=== PATIENT | female | born 1975 | race Caucasian/White ===

== ENCOUNTER 2019-04-11 18:15 | Emergency (ER) | payer SELFPAY ==
[~2019-04-11] VITALS: Ht 152.4 cm; Wt 80.7 kg
[2019-04-11 18:16] VITALS: BP 165/81
--- NOTE | 2019-04-11 18:24 | NUR ---
PT AMB TO BED 11.
[2019-04-11] MEDS ORDERED: ONDANSETRON 4 MG/2 ML VIAL IVP ONE (18:45)
[2019-04-11] MEDS ORDERED: KETOROLAC 30 MG/ML VIAL IVP ONE (18:45)
[2019-04-11] MEDS ORDERED: NACL 0.9% 1,000 ML IV ONE (18:45)
--- NOTE | 2019-04-11 18:46 | NUR ---
PATIENT PRESENTS TO ED C/O RUQ PAIN X 1 DAY. PT STATES THAT THIS PAIN HAS BEEN PRESENT FOR 2 MONTHS, WHICH COMES AND GOES. PAIN INCREASED IN INTENSITY TODAY, 9/10, SQUEEZING PAIN. NO MEDS TAKEN. PT CONSULTED MD FOR SAME REASON 20 DAYS PRIOR. PER PT, ANIYAH RESULTS SHOWED INFLAMED GALLBLADDER. +NAUSEA, -VOMITING. NO URINARY SYMPTOMS. LBM: TODAY. PT DENIES ANY FEVER, CP, SOB, OR COUGH AT THIS TIME; ABDOMEN CARD TENDER ON RUQ. BOWEL SOUNDS HYPOACTIVE ON ALL QUADRANTS. VSS; PATIENT POSITIONED FOR COMFORT; HOB ELEVATED; BEDRAILS UP X2; BED DOWN. DR. ONEAL AT BEDSIDE.
[2019-04-11 19:10] LABS: BASOPHILS # (AUTO) 0.1 K/uL (0.00-0.22); BASOPHILS % (AUTO) 1.1 % (0.0-2.0); EOSINOPHILS # (AUTO) 0.3 K/uL (0-0.4); EOSINOPHILS % (AUTO) 3.1 % (0.0-4.0); HEMOGLOBIN 13.4 g/dL (12.0-16.0); LYMPHOCYTES # (AUTO) 3.2 K/uL (2.5-16.5); LYMPHOCYTES % (AUTO) 35.2 % (20.5-51.1); MEAN CORPUSCULAR HEMOGLOBIN 31 pg (27-31); MEAN CORPUSCULAR HGB CONC 34 g/dL (33-37); MEAN CORPUSCULAR VOLUME 93.3 fL (80-94); MONOCYTES # (AUTO) 0.5 K/uL (0.8-1.0); MONOCYTES % (AUTO) 5.1 % (1.7-9.3); NEUTROPHILS # (AUTO) 5.1 K/uL (1.8-7.7); NEUTROPHILS % (AUTO) 55.5 % (42.2-75.2); PLATELET COUNT (AUTO) 265 K/uL (140-450); RED BLOOD CELL COUNT(AUTO) 4.29 MIL/uL (4.20-5.40); RED CELL DISTRIBUTION WIDTH 13.8 % (11.6-13.7); WHITE BLOOD COUNT (AUTO) 9.2 K/uL (4.8-10.8)
[2019-04-11] MEDS ORDERED: MORPHINE SULFATE 4 MG/ML SYR IVP ONE (19:10)
--- NOTE | 2019-04-11 19:23 | NUR ---
Pt report given to ALEXUS REYNOSO. Transfer of care at this time.
--- NOTE | 2019-04-11 19:25 | NUR ---
RECEIVED REPORT FROM MADELYN VAUGHAN, TRANSFER OF CARE AT THIS TIME. PATIENT IS ALERT AND ORIENTED, BREATHING EVEN AND UNLABORED. PATIENT STATES 0/10 PAIN.
[2019-04-11 19:27] LABS: CARBON DIOXIDE 27.7 mmol/L (21-32); CREATININE 0.8 mg/dL (0.6-1.3); POTASSIUM 3.7 mmol/L (3.5-5.1)
[2019-04-11 19:33] LABS: ALBUMIN 3.7 g/dL (3.4-5.0); TOTAL BILIRUBIN 0.4 mg/dL (0.0-1.0)
[2019-04-11 20:35] VITALS: BP 165/81
--- NOTE | 2019-04-11 20:35 | NUR ---
Patient discharged with v/s stable. Written and verbal after care instructions ABOUT ABDOMINAL PAIN AND CHOLELITHIASIS given and explained. Patient alert, oriented and verbalized understanding of instructions. Ambulatory with steady gait. All questions addressed prior to discharge. ID band removed. Patient advised to follow up with PMD. Rx of MOTRIN, ZOFRAN, AND NORCO given. Patient educated on indication of medication including possible reaction and side effects. Opportunity to ask questions provided and answered.
--- NOTE | 2019-04-17 13:53 | NUR ---
Late entry. Confirmed with RN that 1000ml 0.9 NS IV completed at 1950
== END 2019-04-11 20:35 | disposition home or self-care (01) ==
LOC: MED 18:15
DX: R10.11 Right upper quadrant pain (principal); Z98.890 Other specified postprocedural states
CPT/HCPCS: 36415; 80053; 81002; 81025; 83690; 85025; 96374; 96375; 99283; J1885; J2270; J2405; J7030

== ENCOUNTER 2019-09-04 16:33 | Inpatient (IN) | payer MEDICAID ==
[~2019-09-04] VITALS: Ht 154.9 cm; Wt 79.8 kg
[2019-09-04 16:44] VITALS: BP 157/80
--- NOTE | 2019-09-04 16:47 | NUR ---
Patient ambulated to bed 6. RN evaluating patient at bedside.
--- NOTE | 2019-09-04 16:57 | NUR ---
AMB TO RESTROOM
--- NOTE | 2019-09-04 16:59 | NUR ---
43 Y/F PRESENTS TO ED FOR RUQ ABD PAIN X 2 WEEKS. PT REPORTS PAIN IS ON AND OFF, 10/10 PAIN, NONRADIATING. PT DENIES N/V/D, FEVER, CONSTIPATION. PT DENIES DYSURIA, HEMATURIA. ABD SOFT, BS ACTIVE X 4. RUQ TENDER UPON PALPATION. NKDA PMH- DENIES RX- DENIES
--- NOTE | 2019-09-04 17:16 | NUR ---
DR. GUAN AT BEDSIDE EVALUATING PT.
[2019-09-04] MEDS ORDERED: KETOROLAC 30 MG/ML VIAL IVP ONE (17:20)
[2019-09-04 17:29] LABS: BASOPHILS % (AUTO) 0.4 % (0.0-2.0); EOSINOPHILS # (AUTO) 0.1 K/uL (0-0.4); EOSINOPHILS % (AUTO) 1.3 % (0.0-4.0); HEMATOCRIT 44.1 % (36-48); HEMOGLOBIN 14.6 g/dL (12.0-16.0); LYMPHOCYTES # (AUTO) 2.6 K/uL (2.5-16.5); LYMPHOCYTES % (AUTO) 23.5 % (20.5-51.1); MEAN CORPUSCULAR HEMOGLOBIN 31 pg (27-31); MEAN CORPUSCULAR HGB CONC 33 g/dL (33-37); MEAN CORPUSCULAR VOLUME 91.8 fL (80-94); MONOCYTES # (AUTO) 0.7 K/uL (0.8-1.0); MONOCYTES % (AUTO) 6.3 % (1.7-9.3); NEUTROPHILS # (AUTO) 7.7 K/uL (1.8-7.7); NEUTROPHILS % (AUTO) 68.5 % (42.2-75.2); PLATELET COUNT (AUTO) 326 K/uL (140-450); RED CELL DISTRIBUTION WIDTH 14.4 % (11.6-13.7); WHITE BLOOD COUNT (AUTO) 11.2 K/uL (4.8-10.8)
--- NOTE | 2019-09-04 17:40 | NUR ---
ULTRASOUND AT BEDSIDE.
[2019-09-04 17:46] LABS: ALBUMIN 3.8 g/dL (3.4-5.0); ANION GAP 14.2 (8-16); CARBON DIOXIDE 27.9 mmol/L (21-32); CREATININE 0.7 mg/dL (0.6-1.3); POTASSIUM 4.1 mmol/L (3.5-5.1); TOTAL BILIRUBIN 0.9 mg/dL (0.0-1.0)
--- NOTE | 2019-09-04 18:00 | NUR ---
VSS. ALL NEEDS MET AT THIS TIME WILL CONTINUE TO MONTIOR
--- NOTE | 2019-09-04 18:00 | NUR ---
NADR. DECREASED PAIN TO 8/10.
[2019-09-04] MEDS ORDERED: DOCUSATE SODIUM 100 MG GELCAP PO PRN (18:55)
[2019-09-04] MEDS ORDERED: MORPHINE SULFATE 2 MG/ML SYR IVP PRN (18:55)
[2019-09-04] MEDS ORDERED: ACETAMINOPHEN 325 MG TAB PO PRN (18:55)
[2019-09-04] MEDS ORDERED: ONDANSETRON 4 MG/2 ML VIAL IM/IVP PRN (18:55)
[2019-09-04] MEDS ORDERED: KETOROLAC 15 MG/ML VIAL IVP PRN (18:55)
--- NOTE | 2019-09-04 18:55 | NUR ---
Patient appears to be resting in bed. Vital Signs within normal limits. Respirations even and unlabored.
--- NOTE | 2019-09-04 19:15 | NUR ---
RECIEVED REPORT FROM LEX VAUGHAN FOR CONTINUITY OF CARE. PT RESTING IN BED COMFORTABLY
[2019-09-04 19:40] LABS: PROTHROMBIN TIME 9.6 secs (10.8-13.4)
--- NOTE | 2019-09-04 19:50 | NUR ---
Patient will be admitted to care of DR. HIGH. Admited to Med/Surg. Will go to room 106A. Belongings list completed. Report to ALEXUS SERNA.
[2019-09-04 19:53] LABS: MAGNESIUM 2.1 mg/dL (1.8-2.4); PHOSPHORUS 3.2 mg/dL (2.5-4.9); THYROID STIMULATING HORMONE 1.56 uIU/mL (0.34-3.74)
[2019-09-04 20:00] VITALS: BP 142/80
--- NOTE | 2019-09-04 20:00 | NUR ---
PT BROUGHT UP TO FLOOR BY TYLER TO BED 106, SHE AMBULATED TO BED A INDEPENDENTLY.PT AOX4 SKIN INTACT WITH 20G IV SITE ON RAC. PT V/S FOLLOWS: T 98.2 P 70 R 18 B/P 142/80 02 98% ON ROOM AIR. PT WAS GIVEN PAIN MEDICATION IN ER AND DENIES PAIN IN ABDOMEN AT THIS TIME.
--- NOTE | 2019-09-04 20:45 | NUR ---
MD JAIN AT BEDSIDE EVALUATING PT. PT IN STABLE CONDITION.
[2019-09-04 21:08] LABS: BARBITURATE, URINE NEGATIVE ng/ml (NEG <=200); BENZODIAZEPINE, URINE NEGATIVE ng/mL (NEG <=200); CANNABINOID, URINE NEGATIVE ng/mL (NEG <=50); COCAINE, URINE NEGATIVE ng/mL (NEG <=300); OPIATE, URINE NEGATIVE ng/mL (NEG <=2000); PHENCYCLIDINE SCREEN,URINE NEGATIVE ng/mL (NEG <=25)
--- NOTE | 2019-09-04 21:30 | NUR ---
PT IN BED NO C/O VOICED. MRSA SWAB DONE IN BOTH NARES, RESIDENT MD CHANCE ORDERED D5N/S AT 80 HUNG AND RUNNING ORDERED. ADMISSION QUESTIONS ASKED VIA [employer]. POLISH COMPOUNDER JOSSELYN . VIA SAME POLISH COMPOUNDER, PT AGREED TO GALLBLADDER SURGERY IN THE AM. AL QUESTIONS ANSWERED REGARDING SURGERY AND ADMISSION. PT CONTINUES TO DENY PAIN. PT ORIENTED TO ROOM , SURROUNDINGS AND ROOMMATE. ALL UNIVERSAL FALLS PRECAUTIONS IN PLACE.
--- NOTE | 2019-09-04 22:00 | NUR ---
CONSENT SIGNED AND PLACED IN CHART
[2019-09-04] MEDS: DEXT 5% /NACL 0.9% 1,000 ML IV SCH (23:41)
--- NOTE | 2019-09-05 | NUR ---
PT IN BED RESTING WITH EYES CLOSED, V/S FOLLOWS: T 98.1 P 72 R 18 B/P 94/46 02 100% ON ROOM AIR. IV FLUIDS RUNNING ORDERED, UNIVERSAL FALLS PRECAUTIONS IN PLACE.
--- NOTE | 2019-09-05 04:00 | NUR ---
PT IN BED IV SITE FLUSHED, ASYMPTOMATIC AND INTACT. PT DENIES ANY PAIN AT TIME. ALL UNIVERSAL FALLS PRECAUTIONS IN PLACE.
--- NOTE | 2019-09-05 06:00 | NUR ---
PT IN BED RESTING WITH EYES CLOSED NO C/O VOICED, IV FLUIDS RUNNING ORDERED, ALL UNIVERSAL FALLS PRECAUTIONS IN PLACE.
[2019-09-05] MEDS: DEXT 5% /NACL 0.9% 1,000 ML IV SCH ×2 (07:24→19:54)
[2019-09-05 07:39] LABS: BASOPHILS % (AUTO) 0.3 % (0.0-2.0); EOSINOPHILS # (AUTO) 0.2 K/uL (0-0.4); EOSINOPHILS % (AUTO) 2.5 % (0.0-4.0); HEMATOCRIT 39.7 % (36-48); HEMOGLOBIN 13.1 g/dL (12.0-16.0); LYMPHOCYTES # (AUTO) 1.9 K/uL (2.5-16.5); LYMPHOCYTES % (AUTO) 24.8 % (20.5-51.1); MEAN CORPUSCULAR HEMOGLOBIN 31 pg (27-31); MEAN CORPUSCULAR HGB CONC 33 g/dL (33-37); MEAN CORPUSCULAR VOLUME 92.8 fL (80-94); MONOCYTES # (AUTO) 0.5 K/uL (0.8-1.0); NEUTROPHILS # (AUTO) 5.2 K/uL (1.8-7.7); NEUTROPHILS % (AUTO) 66.4 % (42.2-75.2); PLATELET COUNT (AUTO) 287 K/uL (140-450); RED BLOOD CELL COUNT(AUTO) 4.28 MIL/uL (4.20-5.40); RED CELL DISTRIBUTION WIDTH 14.4 % (11.6-13.7); WHITE BLOOD COUNT (AUTO) 7.8 K/uL (4.8-10.8)
[2019-09-05 07:54] LABS: ANION GAP 16.7 (8-16); CARBON DIOXIDE 21.8 mmol/L (21-32); CREATININE 0.7 mg/dL (0.6-1.3); POTASSIUM 3.5 mmol/L (3.5-5.1)
[2019-09-05 08:00] VITALS: BP 139/76
--- NOTE | 2019-09-05 08:02 | NUR ---
RECEIVED REPORT FROM HELIX COIL WINDER. PT IN STABLE CONDITION, NO DISTRESS NOTED, RESPIRATIONS EVEN AND UNLABORED ON ROOM AIR. SKIN INTACT. IV IN PLACE PATENT AND ASYMPTOMATIC INFUSING PER ORDER. SAFETY MEASURES IN PLACE. CALL LIGHT WITHIN REACH, WILL CONTINUE TO MONITOR.
--- NOTE | 2019-09-05 08:58 | NUR ---
PATIENT HAS BEEN SCREENED AND CATEGORIZED LOW NUTRITION RISK. PATIENT WILL BE SEEN WITHIN 7 DAYS OF ADMISSION. 09/11/[address]
--- NOTE | 2019-09-05 11:45 | NUR ---
Missile Technician Note: Basic Screen: Yes High Risk DC Screen [place]: EMMANUEL JACOBO Home Relationship: SIGNIFICANT OTHER Pre-Admission Living Arrangements: Lives with Other Prior ADL Independent Current Home Health Name/Tel: N/A Current DME/02 Name/Tel: N/A Current Hospice Name/Tel: N/A Current Dialysis Name/Tel: N/A Healthcare Decision Maker: Patient Advance Directive No Physician Orders for Life Sustaining Treatment Form No Patient/Family Have Educational Needs No Discipline: Case Mgt/Social Svcs Tentative Discharge Plan/Destination: No Needs Identified Will require assistance post discharge: No Referred to Work Checker: No Tentative Discharge Plan Summary: Patient is a 43-year-old female admitted for impacted gallbladder neck. Patient has no pertinent PMHX. Patient was admitted from home where she lives with significant other and children. SW contacted Emmanuel Jacobo [phone] to verify demographics. Per Emmanuel, patient is independent with all ADLs and has no history of mental health or substance abuse. Tentative discharge plan is for patient to return home. No further needs identified. Signature: RASHEEDA Lu Date: Sep 05, 2019 Time: 11:44
--- NOTE | 2019-09-05 12:07 | NUR ---
to CT scan via w/c
[2019-09-05] MEDS ORDERED: cefTRIAXone 1,000 MG VIAL ONE (12:26)
--- NOTE | 2019-09-05 12:39 | NUR ---
SCHEDULED IV ABX ADMINISTERED. PT RESTING IN BED, NO SIGNS OF DISTRESS, ALL NEEDS MET AT THIS TIME.
--- NOTE | 2019-09-05 15:06 | NUR ---
DISCHARGE PLANNING: THIS IS A 43 Y/O FEMALE PATIENT FROM HOME, WHO CAME IN DUE TO ABDOMINAL PAIN X1 DAY. DENIES PAST MEDICAL HISTORY. SURGICAL HISTORY INCLUDE BILATERAL TUBAL LIGATION. INITIAL DIAGNOSIS OF IMPACTED GALLBLADDER NECK STONE. GALLBLADDER US SHOWED CHOLELITHIASIS WITHOUT EVIDENCE OF CHOLECYSTITIS. ABD/PELVIS CT SHOWED CHOLELITHIASIS AND CHOLECYSTITIS. SURGICAL CONSULT WITH DR. WALTERS IN PLACE. LABS WNL, LIPASE/ AMYLASE WNL. ON ROCEPHIN IV. SCHEDULED FOR LAP POSSIBLE OPEN CHOLECYSTECTOMY WITH DR. WALTERS TODAY. DC PLAN BACK TO HOME ONCE STABLE. Addendum: 09/06/19 at 1351 by Radha Blevins CM S/P LAP WES 09/05/[address] WALTERS. FOR DC TODAY.
--- NOTE | 2019-09-05 15:27 | NUR ---
PT TAKEN BY OR NURSES FOR LAP CHOLECYSTECTOMY.
[2019-09-05] MEDS ORDERED: MIDAZOLAM 2 MG/2 ML VIAL ONE (15:58)
[2019-09-05] MEDS ORDERED: DEXAMETHASONE 4 MG/ML VIAL ONE (15:58)
[2019-09-05] MEDS ORDERED: ROCURONIUM 50 MG/5 ML VIAL IV ONE (15:58)
[2019-09-05] MEDS ORDERED: PROPOFOL 200 MG/20 ML VIAL IV ONE (15:58)
[2019-09-05] MEDS ORDERED: DESFLURANE 240 ML BTL INH ONE (15:58)
[2019-09-05] MEDS ORDERED: LIDOCAINE 2% 100 MG/5 ML SYR IVP ONE (15:58)
[2019-09-05] MEDS ORDERED: GLYCOPYRROLATE 0.2 MG/ML VIAL ONE (15:58)
[2019-09-05] MEDS ORDERED: fentaNYL 0.05 MG/ML VIAL ONE (15:58)
[2019-09-05] MEDS ORDERED: ONDANSETRON 4 MG/2 ML VIAL ONE (15:58)
[2019-09-05] MEDS ORDERED: NEOSTIGMINE 1:1000 10 MG/10 ML VIAL ONE (15:58)
[2019-09-05] MEDS ORDERED: SUCCINYLCHOLINE CHLORIDE 200 MG/10 ML VIAL IVP ONE (15:58)
[2019-09-05] MEDS: BUPIVACAINE-MPF 0.25% 30 ML VIAL INJ ONE ×2 (16:08→17:29)
[2019-09-05] MEDS ORDERED: ONDANSETRON 4 MG/2 ML VIAL IVP PRN ×2 (16:50→17:10)
[2019-09-05] MEDS ORDERED: HYDROmorphone 1 MG/ML AMP IVP PRN (16:50)
[2019-09-05] MEDS ORDERED: MORPHINE SULFATE 2 MG/ML SYR IVP PRN (17:10)
[2019-09-05] MEDS ORDERED: HYDROcodone/APAP 5/325 MG 1 TAB TAB PO PRN (17:10)
[2019-09-05] MEDS ORDERED: MORPHINE SULFATE 4 MG/ML SYR IV PRN (17:10)
[2019-09-05 17:55] VITALS: BP 120/78
--- NOTE | 2019-09-05 17:55 | NUR ---
PT BACK FROM OR. RECEIVED REPORT FROM OR NURSE. INITIATED POST OP VITALS.
[2019-09-05] MEDS: HYDROmorphone 1 MG/ML AMP IVP PRN ×2 (19:15→23:55)
--- NOTE | 2019-09-05 19:25 | NUR ---
REPORT TO ALEXUS LOU. POST OP VITALS FORM GIVEN TO CARMINE VAUGHAN.
--- NOTE | 2019-09-05 19:26 | NUR ---
RECD. RESTING IN BED, AWAKE, A/OX4. RESPIRATION EVEN AND UNLABORED. IV OF D5NS AT 80 ML/HR INFUSING RIGHT AC G20. INCISION IN THE ABDOMEN (4) WITH DERMA ELMORE, OPEN TO AIR, ALL DRY AND INTACT. VS STABLE. PAIN IN THE ABDOMEN, 08/24, WAS MEDICATED BY AM NURSE AT 1915. PLAN OF CARE FOR THE SHIFT DISCUSSED. VERBALIZED UNDERSTANDING.
[2019-09-05 20:00] VITALS: BP 115/60
--- NOTE | 2019-09-05 20:30 | NUR ---
REQUESTED FOR BROTH AND JELLO. TOLERATED WELL. NO N/V NOTED.
--- NOTE | 2019-09-05 23:00 | NUR ---
ASSISTED OUT OF BED TO GO TO BR. VOIDED MODERATE AMOUNT OF URINE. BACK TO BED AFTER VOIDING.
[2019-09-05 23:54] VITALS: BP 128/75
--- NOTE | 2019-09-05 23:55 | NUR ---
NAUSEATED AND IN PAIN /10. MEDICATED WITH ZOFRAN AND DILAUDID PER MD ORDER BY ALEXUS SANZ. MADE COMFORTABLE IN BED WITH PILLOWS.
--- NOTE | 2019-09-06 00:15 | NUR ---
NO N/V NOTED. RESTING COMFORTABLY IN BED.
--- NOTE | 2019-09-06 02:00 | NUR ---
AWAKE IN BED, REQUESTED FOR WARM WATER. WENT BACK TO SLEEP.
--- NOTE | 2019-09-06 04:00 | NUR ---
COMPLAINT OF FEELING DIZZY WHEN AMBULATING. BP CHECKED - 140/77, HR - 89. ADVISED TO CALL NURSE FOR ASSISTANCE BEFORE GOING OF BED TO PREVENT FALLS. VERBALIZED UNDERSTANDING.
[2019-09-06] MEDS: DEXT 5% /NACL 0.9% 1,000 ML IV SCH ×2 (04:55→08:24)
--- NOTE | 2019-09-06 06:00 | NUR ---
TOLERATING CLEAR LIQUID, AMBULATING TO THE BR, VOIDING WELL. NO BM YET, NOT PASSING GAS. ENCOURAGED TO ALTERNATELY TURN TO SIDES AND AMBULATE MORE.
[2019-09-06 06:08] LABS: HEPATITIS A ANTIBODY IGM Negative (Negative); HEPATITIS B CORE AB TOTAL Negative (Negative); HEPATITIS B SURFACE ANTIBODY Non Reactive (.); HEPATITIS B SURFACE ANTIGEN Negative (Negative)
--- NOTE | 2019-09-06 07:18 | NUR ---
ENDORSED TO AM SHIFT NURSE FOR CONTINUITY OF CARE.
--- NOTE | 2019-09-06 07:18 | NUR ---
RECEIVED PT FROM BRIDGE MECHANIC NURSE LEONEL. PT RESTING IN BED, AOX4, TURKISH SPEAKING, ON ROOM AIR. IV SITE RIGHT AC #20 RUNNING D5-NS @80ML/HR. DISCUSSED PLAN OF CARE AND PT VERBALIZED UNDERSTANDING. NO S/S OF RESPIRATORY DISTRESS OR DISCOMFORT NOTED AT THIS TIME. WILL CONTINUE TO MONITOR.
[2019-09-06] MEDS ORDERED: HYDR-5122 PO (07:22)
[2019-09-06 08:00] VITALS: BP 136/84
[2019-09-06] MEDS ORDERED: DOCU-299 PO (09:44)
--- NOTE | 2019-09-06 10:00 | NUR ---
PT RESTING IN BED. NO S/S OF RESPIRATORY DISTRESS OR DISCOMFORT NOTED AT THIS TIME. WILL CONTINUE TO MONITOR.
[2019-09-06 10:49] LABS: ALBUMIN 3.2 g/dL (3.4-5.0); BILIRUBIN,DIRECT 0.1 mg/dL (0.0-0.3); TOTAL BILIRUBIN 0.5 mg/dL (0.0-1.0)
[2019-09-06 10:55] VITALS: BP 136/84
--- NOTE | 2019-09-06 12:00 | NUR ---
PT RESTING IN BED. NO S/S OF RESPIRATORY DISTRESS OR DISCOMFORT NOTED AT THIS TIME. WILL CONTINUE TO MONITOR.
--- NOTE | 2019-09-06 14:11 | NUR ---
PHOTOGRAPHIC PICTURE TAKEN OF X4 SURGICAL INCISIONS AND PLACED IN PT CHART.
--- NOTE | 2019-09-06 14:15 | NUR ---
IV REMOVED, CATHETER INTACT. ID BANDS REMOVED. PT STABLE AT THIS TIME TO BE DISCHARGED.
--- NOTE | 2019-09-06 14:25 | NUR ---
PT WAS ESCORTED BY KARRI MCGOWAN VIA WHEELCHAIR TO FRONT LOBBY WHERE FAMILY AWAITING.
== END 2019-09-06 14:25 | disposition home or self-care (01) | DRG 263 ==
LOC: MED 16:33 → MTU 18:54
PROVIDERS: ADMIT General Practice; ATTEND General Practice
PROC: 0FT44ZZ Resection of Gallbladder, Percutaneous Endoscopic Approach (ICD-10-PCS; principal; 2019-09-05 09:00)
DX: K80.20 Calculus of gallbladder without cholecystitis without obstruction (principal); K76.0 Fatty (change of) liver, not elsewhere classified; R74.0 Nonspecific elevation of levels of transaminase and lactic acid dehydrogenase [LDH]; Z98.51 Tubal ligation status
CPT/HCPCS: 36415; 71045; 76705; 80048; 80053; 80076; 80305; 82150; 83036; 83690; 83735; 83880; 84100; 84443; 85025; 85610; 85730; 86704; 86706; 86708; 86709; 86803; 86886; 86900; 86901; 87081; 87340; 96374; 99285; J0330; J0696; J1100; J1170; J1885; J2001; J2250; J2405; J2704; J2710; J3010; J3490; J7030; J7042; J7060; Q0092